=== PATIENT | female | born 1950 | race Caucasian/White ===

== ENCOUNTER → 2020-05-15 15:42 | Outpatient (BNVA) | payer MEDICARE, SELFPAY | PROVIDERS: PCP Internal Medicine; Visit Provider Anesthesiology | DX: M96.1 Postlaminectomy syndrome, not elsewhere classified (principal); G89.4 Chronic pain syndrome | CPT/HCPCS: 99202 ==

== ENCOUNTER 2020-08-16 08:59 | Day surgery (SDC) | payer MEDICARE, SELFPAY ==
[2020-08-12 16:13] VITALS: BMI 32.8
--- NOTE | 2020-08-14 09:59 | HO.ANESPROP2 ---
Documented by User: Geraldine Ballesteros 08/15/20 09:45 HPI - Anesthesia Eval Consult details Narrative: 70yo F for Lumbar Spinal Cord Simulation Trial Eliquis for PAF Case reviewed with Dr Cramer. [facility] Active Problems Active Problems: All Active Problems (Updated 08/13/20 @ 10:14 by Siena Resendiz) Chronic pain syndrome (Acute) Postlaminectomy syndrome, lumbar (Acute) Past Medical History Medical History (HFpEF) heart failure with preserved ejection fraction A-fib Arthritis CAD (coronary artery disease) Chronic kidney disease (CKD), stage IV (severe) Chronic pain syndrome Congestive heart failure (CHF) Diabetic neuropathy Essential tremor GERD (gastroesophageal reflux disease) Hemoglobin F disease History of cardioversion HTN (hypertension) IDDM (insulin dependent diabetes mellitus) Interstitial pulmonary fibrosis Left hip pain Low back pain PONV (postoperative nausea and vomiting) Postlaminectomy syndrome, lumbar RLS (restless legs syndrome) Sleep apnea Spinal stenosis of lumbosacral region Uses walker Venous stasis dermatitis of both lower extremities Surgical History Surgical History H/O cardiac radiofrequency ablation History of back surgery Hx of appendectomy Hx of CABG Hx of cholecystectomy Hx of colonoscopy Social History Social History Smoking Status: Never smoker Use of substances other than those prescribed or required for medical reasons: No Are you DNR?: No Advance Directives: No Advance Directives Information Provided: No Advance Directives on File: No Meds Allergies Allergy/AdvReac Type Severity Reaction Status Date / Time Penicillins Allergy Intermediate Hives Verified 08/16/20 09:06 Home Medications Medication Instructions Recorded Confirmed Last Taken Type apixaban [Eliquis] 1 tab PO BID 08/12/20 08/12/20 Unknown History cholecalciferol (vitamin D3) 25 mcg PO DAILY 08/12/20 08/12/20 Unknown History [Vitamin D3] digoxin 62.5 mcg PO DAILY 08/12/20 08/12/20 Unknown History diltiazem HCl 1 cap PO DAILY 08/12/20 08/12/20 Unknown History empagliflozin [Jardiance] 1 tab PO DAILY 08/12/20 08/12/20 Unknown History gabapentin 300 mg PO DAILY@0730 10/21 05/10/21 Unknown History gabapentin 600 mg PO BEDTIME 08/12/20 08/12/20 Unknown History glipizide 1 tab PO BID 08/12/20 08/12/20 Unknown History insulin aspart U-100 [Novolog unit SUBCUT 08/12/20 Unknown History Flexpen U-100 Insulin] insulin glargine [Basaglar KwikPen 80 unit SUBCUT BEDTIME 08/12/20 08/12/20 Unknown History U-100 Insulin] losartan 1 tab PO BEDTIME 08/12/20 08/12/20 Unknown History metoclopramide HCl [Reglan] 5 mg PO BID 08/12/20 08/12/20 Unknown History metoprolol tartrate 150 mg PO BEDTIME 08/12/20 08/12/20 Unknown History metoprolol tartrate 200 mg PO DAILY@72908/12/20 08/12/20 Unknown History omeprazole 1 cap PO DAILY 08/12/20 08/12/20 Unknown History pramipexole 1 tab PO BEDTIME 08/12/20 08/12/20 Unknown History primidone 50 mg PO DAILY@72908/12/20 08/12/20 Unknown History primidone 100 mg PO BEDTIME 08/12/20 08/12/20 Unknown History simvastatin 1 tab PO BEDTIME 08/12/20 08/12/20 Unknown History torsemide 60 mg PO DAILY@72908/12/20 08/12/20 Unknown History Exam Exam Date and Time: August 14, 2020 0959 Height,Weight and Vital Signs: Height 5 ft 3 in Weight 83.915 kg Pertinent Lab Results Pertinent Lab Results: Per renal note: 06/2020 BUN 44 (H) Creat 1.9 (H) - baseline 1.8-2.0 Na 136 K 4.7 CO2 25 H&H 11.4 (L) & 37.7 Narrative Narrative: EKG 07/2020 afib @ 77 Echo 2019 EF 65% Normal RWMA Enlarged RV, reduced systolic funciton Focal thickening of aortic valve MAC Trace MR Trace TR Trace Pulm Insuff Assessment and Plan Assessment Anesthesia Assessment: Chart Reviewed Documented by User: Jc Downs 08/16/20 09:23 [facility] Past Medical History Medical History (HFpEF) heart failure with preserved ejection fraction A-fib Arthritis CAD (coronary artery disease) Chronic kidney disease (CKD), stage IV (severe) Chronic pain syndrome Congestive heart failure (CHF) Diabetic neuropathy Essential tremor GERD (gastroesophageal reflux disease) Hemoglobin F disease History of cardioversion HTN (hypertension) IDDM (insulin dependent diabetes mellitus) Interstitial pulmonary fibrosis Left hip pain Low back pain PONV (postoperative nausea and vomiting) Postlaminectomy syndrome, lumbar RLS (restless legs syndrome) Sleep apnea Spinal stenosis of lumbosacral region Uses walker Venous stasis dermatitis of both lower extremities Surgical History Surgical History H/O cardiac radiofrequency ablation History of back surgery Hx of appendectomy Hx of CABG Hx of cholecystectomy Hx of colonoscopy Social History Social History Smoking Status: Never smoker Use of substances other than those prescribed or required for medical reasons: No Are you DNR?: No Advance Directives: No Advance Directives Information Provided: No Advance Directives on File: No Meds Allergies Allergy/AdvReac Type Severity Reaction Status Date / Time Penicillins Allergy Intermediate Hives Verified 08/16/20 09:06 Home Medications Medication Instructions Recorded Confirmed Last Taken Type apixaban [Eliquis] 1 tab PO BID 08/12/20 08/12/20 Unknown History cholecalciferol (vitamin D3) 25 mcg PO DAILY 08/12/20 08/12/20 Unknown History [Vitamin D3] digoxin 62.5 mcg PO DAILY 08/12/20 08/12/20 Unknown History diltiazem HCl 1 cap PO DAILY 08/12/20 08/12/20 Unknown History empagliflozin [Jardiance] 1 tab PO DAILY 08/12/20 08/12/20 Unknown History gabapentin 300 mg PO DAILY@0730 08/12/20 08/12/20 Unknown History gabapentin 600 mg PO BEDTIME 08/12/20 08/12/20 Unknown History glipizide 1 tab PO BID 08/12/20 08/12/20 Unknown History insulin aspart U-100 [Novolog unit SUBCUT 08/12/20 Unknown History Flexpen U-100 Insulin] insulin glargine [Basaglar KwikPen 80 unit SUBCUT BEDTIME 08/12/20 08/12/20 Unknown History U-100 Insulin] losartan 1 tab PO BEDTIME 08/12/20 08/12/20 Unknown History metoclopramide HCl [Reglan] 5 mg PO BID 08/12/20 08/12/20 Unknown History metoprolol tartrate 150 mg PO BEDTIME 08/12/20 08/12/20 Unknown History metoprolol tartrate 200 mg PO DAILY@0730 08/12/20 08/12/20 Unknown History omeprazole 1 cap PO DAILY 08/12/20 08/12/20 Unknown History pramipexole 1 tab PO BEDTIME 08/12/20 08/12/20 Unknown History primidone 50 mg PO DAILY@0730 08/12/20 08/12/20 Unknown History primidone 100 mg PO BEDTIME 08/12/20 08/12/20 Unknown History simvastatin 1 tab PO BEDTIME 08/12/20 08/12/20 Unknown History torsemide 60 mg PO DAILY@0730 08/12/20 08/12/20 Unknown History Exam Airway Mallampati Class: III TM Dist: >3cm Neck ROM: Full
--- NOTE | ~2020-08-16 | FL_ITS ---
EXAMINATION: XR FLUOROSCOPY WITH IMAGES CLINICAL INFORMATION: Spinal stimulator trial COMPARISON: None. TECHNIQUE: Fluoroscopy performed by Dr. Dante Hawkins. Fluoroscopy time: 12.4 minutes DAP: 93 mGycm2 Images: 2 FINDINGS: AP and lateral fluoroscopic images of the lower thoracic spine demonstrate a spinal stimulator in the spinal canal. There are median sternotomy wires. There is one broken median sternotomy wires are seen. FL/FL guidance in OR IMPRESSION: Fluoroscopic guidance for spinal stimulator trial.
[2020-08-16 09:20] VITALS: BP 121/56; PULSE 75; RESP 18; TEMP 36.1; O2SAT 97
[2020-08-16 09:25] LABS: Glucose, Whole Blood 117 mg/dL (60-115)
[2020-08-16] MEDS: Lactated Ringers 1,000 ML 50 ML IV (09:31)
--- NOTE | 2020-08-16 09:38 | PC.NURSE ---
cardiology report states unable to assess surgical risk. informed Dr Downs. Dr Downs reviewed ok to proceed at this time.
--- NOTE | 2020-08-16 10:39 | MHC.SHP ---
Pre-Procedural Eval Section A The patient is an INPATIENT: No Changes since office visit: Yes Patient answered all questions The History & Physical has been completed within 30 days and I have reviewed it.: No Section B Chief Complaint: Postlaminectomy Syndrome Details of Present Illness: as above Relevant Family History (Specify if Yes): No Relevant Social History: None Present Medications: see Short Stay Collaborative assessment Medical History: Significant History History of Previous Operations: Relevant previous surgery/procedure and date(s) Allergies: Allergies Allergy/AdvReac Type Severity Reaction Status Date / Time Penicillins Allergy Intermediate Hives Verified 08/16/20 09:06 Review of Systems Sugical H&P ROS: Negative: Constitution, Cardiovascular, Respiratory, Neurological, Psychiatric, Hem-Onc, Allergic/Immunologic, Gastrointestinal, Genitourinary, Musculoskeletal, Integumentary, Endocrine and Eyes/Ears/Nose/Throat Exam Surgical H&P Exam: Normal: HEENT, Normal: Heart, Normal: Lungs, Normal: Extremities, Normal: Abdomen, Normal: Skin and Normal: Neurological Plan Diagnosis/Plan: Unchanged I have reviewed the history and physical and performed a pertinent physical examination on my patient. No changes have occurred unless specified.
[2020-08-16 12:50] VITALS: BP 113/59; PULSE 66; RESP 16; TEMP 36.6; O2SAT 98
--- NOTE | 2020-08-16 12:56 | P.BOP_ITS ---
Brief Operative Note Date of Service: 08/16/20 Pre-op diagnosis: Postlaminectomy syndrome Post-op diagnosis: same Procedure: Trial of spinal cord stimulator [employer] Implants: None permanent Surgeon: Dante Hawkins MD Anesthesia: MAC Was an Metal Hanging Helper used for this Procedure?: No Estimated blood loss (mL): 0 Pathology: none sent Condition: stable
--- NOTE | 2020-08-16 12:57 | P.OP_ITS ---
Operative Note Operative Note Date of Service: 08/16/20 Narrative: Ms. Yaz Arellano is very pleasant 70 years old female who presents in my office with postlaminectomy syndrome. She came today for trial of spinal cord stimulator [employer]. reoperatively patient received 2 g clindamycin 900 mg approximately 30 minutes before the procedure. After obtaining informed consent patient was brought to the operating room, he was positioned prone on operating table, [place] [employer] monitors were applied and patient was deeply sedated. Time-out was performed delineating correct site, side, the nature of the procedure, patient's allergy, preoperative antibiotic. All operating room staff was participating in OR time-out procedure. Patient's entire back was prepped with ChloraPrep twice and draped with full body drape. Sterilely draped C-arm was brought over operating field and square picture of T12, L1, L2 vertebrae as were demonstrated on the screen. . Attention FIRST was concentrated on the RIGHT T12-L1 epidural interspace. The location of the projection of the right pedicle center of the L2 vertebra was found on the skin using C-arm. This location was injected with mixture of lidocaine 2% and Marcaine 0.5% 5 cc in approximate direction of needle advancement.. After that 10 cm 14 gauge introducer epidural needle was inserted through the fascia and advanced toward T12-L1 epidural interspace. The advancement of the needle was performed on anterior posterior and lateral views. Guitar wire and loss of resistance technique were used to locate epidural space. When guitar wire was spread in the epidural fashion, epidural lead was i nserted through the skin and it was advanced in the posterior epidural space to the top of the body of T8 vertebra straight to midline. After that locationf the projection of the LEFT pedicle center of the L2 vertebra was found -using C-arm. This location was injected with mixture of lidocaine 2% and Marcaine 0.5% 5 cc.. . 10 cm 14 gauge curved introducer epidural needle was inserted through the skin and advanced to T12-L1 epidural interspace. The advancement of the needle was performed on anterior posterior and lateral views. Guitar wire and loss of resistance technique were used to locate epidural space. When guitar wire was spread in the epidural fashion, epidural lead was inserted through the needle. However the advancement of 2nd lead was proven to be very difficult. I was not able to advance the lead to the posterior epidural space due to adhesions the L lead was deviating to the anterior epidural space. The decision was made to advance the epidural space at T11-T12 intervertebral interspace. The location of the pedicle of the left L1 vertebra was found using C-arm. The location was injected with mixture of lidocaine 2% and Marcaine 0.5% 5 cc. 10 cm 14 gauge introducer epidural needle was inserted through the skin and advanced to T11-T12 epidural interspace. The advancement of the needle was performed on anterior posterior and lateral views. Guitar wire and loss of resistance technique were used to locate epidural space. When guitar wire was spread in the epidural fashion epidural lead was inserted through the needle. The advancement was now more benign. The lead was advanced to the left of the existing lead a and positioned at the top of T8 vertebra. The position of the lead was left to the existing lead. At this moment patient was awaken.The leads were connected to the testing device and impedance was found appropriate. The stimulation device was used to stimulate spinal cord. Patient reported stimulation corresponding to her pain. After that the epidural needles were removed while care was taken to keep the epidural electrodes in place. Anchoring devices were dislodged on the each of the epidural leads to the level of the skin. They were engaged at the level of the skin. After that they were sutured to the skin using 0 silk sutures 2 sutures per each anchoring device. Bacitracin ointment was applied to the level of the skin. Sterile dressing was applied. At this moment patient was taken to the PACU where she recovered uneventfully.
[2020-08-16 13:05] VITALS: BP 105/51; PULSE 65; RESP 16; TEMP 36.6; O2SAT 97
== END 2020-08-16 14:46 | disposition home or self-care (01) ==
PROVIDERS: PCP Internal Medicine; Visit Provider Anesthesiology
PROC: (CPT 63650; principal; 2020-08-16 10:40)
DX: M96.1 Postlaminectomy syndrome, not elsewhere classified (principal); M54.5 Low back pain; G89.4 Chronic pain syndrome; I12.9 Hypertensive chronic kidney disease with stage 1 through stage 4 chronic kidney disease, or unspecified chronic kidney disease; E11.40 Type 2 diabetes mellitus with diabetic neuropathy, unspecified; E11.22 Type 2 diabetes mellitus with diabetic chronic kidney disease; N18.4 Chronic kidney disease, stage 4 (severe); Z79.4 Long term (current) use of insulin; I50.30 Unspecified diastolic (congestive) heart failure; G25.0 Essential tremor; I48.91 Unspecified atrial fibrillation; J70.3 Chronic drug-induced interstitial lung disorders; T46.2X5A Adverse effect of other antidysrhythmic drugs, initial encounter; Y92.9 Unspecified place or not applicable; Z79.01 Long term (current) use of anticoagulants; Z79.899 Other long term (current) drug therapy
CPT/HCPCS: 63650 ×2; 82947; C1778; C1897; J2250; J3010

== ENCOUNTER → 2020-08-22 11:31 | Outpatient (BNVA) | payer MEDICARE, SELFPAY | PROVIDERS: PCP Internal Medicine; Visit Provider Anesthesiology | DX: M96.1 Postlaminectomy syndrome, not elsewhere classified (principal); G89.4 Chronic pain syndrome | CPT/HCPCS: 99212 ==

== ENCOUNTER 2020-11-05 06:14 | Outpatient (REF) | payer MEDICARE, SELFPAY ==
--- NOTE | ~2020-11-05 | FL_ITS ---
EXAMINATION: XR FLUOROSCOPY WITH IMAGES CLINICAL INFORMATION: Chronic pain syndrome. COMPARISON: None TECHNIQUE: Fluoroscopy performed by Lolita Jasso N.P. Fluoroscopy time: 0.1 minutes DAP: 5.45 Gycm2 Images: 1 FINDINGS: A solitary AP image of the upper lumbar spine was obtained. There is a needle positioned at the L2-L3 disc level and may be intrathecal. There are moderate-sized bilateral lateral bony bars seen at the L4-L5 disc level for lateral fusion. FL/FL guidance in treatment room IMPRESSION: Fluoroscopy was provided to the referring performer during pain management.
== END 2020-11-05 06:15 | disposition home or self-care (01) ==
LOC: HO.RADIR 06:14
PROVIDERS: Visit Provider Anesthesiology
DX: M96.1 Postlaminectomy syndrome, not elsewhere classified (principal); G89.4 Chronic pain syndrome
CPT/HCPCS: 62323; J1170; Q9967

== ENCOUNTER → 2020-11-20 16:08 | Outpatient (BNVA) | payer MEDICARE, SELFPAY | PROVIDERS: PCP Internal Medicine; Visit Provider Anesthesiology | DX: M96.1 Postlaminectomy syndrome, not elsewhere classified (principal); G89.4 Chronic pain syndrome | CPT/HCPCS: Q3014 ==

== ENCOUNTER 2022-10-27 14:23 | Outpatient (AMB) | payer MEDICARE, SELFPAY ==
--- NOTE | 2022-10-27 14:27 | MHC.OFFVIS ---
Intake Vital Signs 10/27/22 14:32 Height 5 ft 3 in Weight 168 lb 8 oz BMI 29.8 BP 152/67 H Blood Pressure Location Rt brachial Position Sitting Pulse 67 Pulse Source Pulse Oximeter Pulse Oximetry (%) 95 Oxygen Delivery Method Room Air Intake Visit Reasons: Diabetic Neuropathy per patient request Intake Note: Pain today 5/10. Telecommunications Cable Jointer Required: No Accompanied by: Self / Same As Patient Allergies Penicillins Allergy (Intermediate, Verified 10/27/22 14:46) Hives clindamycin Allergy (Unknown, Verified 10/27/22 14:46) Gastrointestinal Upset lisinopril Allergy (Unknown, Verified 10/27/22 14:46) Unknown HPI HPI Comments History of Present Illness Details Patient is a pleasant 72 years old female presents today to discuss treatments for chronic painful diabetic neuropathy in both of her feet. She was last seen in our office by Dr. Hawkins in 2020 as noted below. Patient reports chronic burning, tingling, shooting pain in both of her feet and difficulty walking, which is exacerbated by his chronic back pain and RLS too. The pain is rates as 5-7/10 in intensity and worse at night. It interferes with her daily activities and functions and sleeping as well. Patient reports history of back surgeries x3 due to spinal stenosis. She can no longer take gabapentin due to CKD Stage 4. She is followed by Dr. Dael at [facility] for CKD. Also reports being hospitalized for 2 months at [facility] for significant fluid overload and CHF in April-May 2022. She regularly sees concrete paver Dr. Barone. She is on Eliquis for Afib, followed by Dr. Chan and has pending surgery for Watchman insertion by Dr. Barnes at [facility] on 12/02/22. Patient has significant venous stasis of both lower extremities and is interested in Vascular consultation. Denies any fever, weight changes, bladder or bowel incontinence or saddle anesthesia. Ambulates with slow, antalgic gait with assistance of walker with seat. PRIOR Dr. Hawkins 11/20/2020: Siobhan is on the phone today after trial of intrathecal drug delivery system pain pump. She reported nausea and vomiting after 50 micro g of Dilaudid intrathecal. She reported no pain relief. She reported continuous pain after the injection inability to stand for long period of time after the injection, she reports that she is being upset with results of those procedures. Before that she went for the trial of spinal cord stimulator [employer]. She reported less than 10% pain improvement. She reported multiple stimulations applied to her lower thoracic spine including low frequency stimulation, high-frequency stimulation, alpha technology, very well stimulation, continuous stimulation all resulted in no pain improvement. Prior: her problem started in 2011. 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 . She was addressing this issue with orthopedic surgeon. She received 2 surgeries on her back 1 is 2011 and another redo in 2017. She states that there is no hardware in her back. She reports her pain 8 out of 10 to 6/10. her pain onset was gradual she denies constant radiation but reports radiation from time to time in bilateral lower extremities She received multiple sessions of physical therapy in 2011 in 2012, physical therapy made her pain only worse. She reported that physical therapy if would be offered to her she would adamantly refused to go for physical therapy so bad experience she had with physical therapy in the past. She had acupuncture for her pain control but acupuncture was not effective. [facility] Medical History (Updated 10/27/22 @ 15:53 by KAILEE Schmid) (HFpEF) heart failure with preserved ejection fraction A-fib Arthritis CAD (coronary artery disease) Chronic kidney disease (CKD), stage IV (severe) Chronic pain syndrome Congestive heart failure (CHF) Diabetic neuropathy Essential tremor GERD (gastroesophageal reflux disease) Hemoglobin F disease History of cardioversion HTN (hypertension) IDDM (insulin dependent diabetes mellitus) Interstitial pulmonary fibrosis Left hip pain Low back pain PONV (postoperative nausea and vomiting) Postlaminectomy syndrome, lumbar RLS (restless legs syndrome) Sleep apnea Spinal stenosis of lumbosacral region Tremor Urticaria Uses walker Venous stasis dermatitis of both lower extremities Surgical History H/O cardiac radiofrequency ablation History of back surgery Hx of appendectomy Hx of CABG Hx of cholecystectomy Hx of colonoscopy Social History (Updated 10/27/22 @ 14:47 by Ruthy Pena) Alcohol intake: current Alcohol intake frequency: a few times a week Patient Tobacco Use Status: Never used Tobacco Review of Systems Const All systems reviewed & are unremarkable except as noted in HPI and below Physical Exam Vital Signs: Last Vital Signs Pulse 67 10/27/22 14:32 BP 152/67 H 10/27/22 14:32 Pulse Ox 95 10/27/22 14:32 Oxygen Delivery Method Room Air 10/27/22 14:32 General: Appears afebrile. Alert and oriented. Mood and affect appropriate. Follows and participates in conversation appropriately. Respiratory effort is unlabored. No cough. Able to transition from sit to stand with assistance. Uses walker with ambulation. Back/Spine/Pelvis Other: Lumbar flexion and extension reproduces low back pain. Cervical Spine: No Cervical spine tenderness Thoracic/Lumbar Spine: thoracic and lumbar spine normal to inspection, Thoracic/lumbar spine scar(s), straight leg raise negative bilaterally, pain with thoraco-lumbar ROM, paraspinal muscle tenderness, thoraco-lumbar ROM limited, No thoracic spinal tenderness and lumbar spinal tenderness Extrem Other: There is a decreased sensation over the soles of the feet and toes. No breaks in the skin, no ulcers. No soft tissue swelling or warmth. Nonpitting ankle and pedal edema with BLE skin discolorations bilaterally. General: Yes no calf tenderness, No cyanosis, Yes pedal edema and Yes venous stasis dermatitis (bilateral lower extremities) Assessment & Plan Assessment & Plan (1) Chronic pain syndrome: Code(s): G89.4 - Chronic pain syndrome (2) Venous stasis dermatitis of both lower extremities: Code(s): I87.2 - Venous insufficiency (chronic) (peripheral) (3) Postlaminectomy syndrome, lumbar: Code(s): M96.1 - Postlaminectomy syndrome, not elsewhere classified (4) Chronic painful diabetic neuropathy: Code(s): E11.40 - Type 2 diabetes mellitus with diabetic neuropathy, unspecified Plan 1. Will try to arrange topical 8% capsaicin application to her bilateral foot pain related to diabetic neuropathy as next step once we have confirmed availability. Informational booklet provided. Patient also suffers from post laminectomy syndrome and has previously failed ITDD and SCS trials. 2. Vascular Surgery Referral for significant venous insufficiency and venous stasis at [facility], per patient's request. She has upcoming procedure for Watchman device insertion for Afib on 12/02/22 at [facility]. All questions and concerns have been answered and patient agreed with the plan. Follow up as needed. Orders: Referrals Vascular Surgery Referral G89.4 - Chronic pain syndrome, I87.2 - Venous insufficiency (chronic) (peripheral) Coding Level of Care Code Est Pt Level 4 (35608) Diagnoses Chronic pain syndrome G89.4 Venous stasis dermatitis of both lower extremities I87.2 Postlaminectomy syndrome, lumbar M96.1 Chronic painful diabetic neuropathy E11.40
[2022-10-27 14:32] VITALS: BP 152/67; PULSE 67; O2SAT 95; BMI 29.8
== END 2022-10-27 14:56 | disposition home or self-care (01) ==
PROVIDERS: PCP Internal Medicine; Visit Provider Nurse Practitioner Family
DX: G89.4 Chronic pain syndrome (principal); I87.2 Venous insufficiency (chronic) (peripheral); M96.1 Postlaminectomy syndrome, not elsewhere classified; E11.40 Type 2 diabetes mellitus with diabetic neuropathy, unspecified
CPT/HCPCS: 99214

== ENCOUNTER → 2022-10-27 14:23 | Outpatient (BNVA) | payer MEDICARE, SELFPAY | PROVIDERS: PCP Internal Medicine; Visit Provider Nurse Practitioner Family | DX: G89.4 Chronic pain syndrome (principal); E11.40 Type 2 diabetes mellitus with diabetic neuropathy, unspecified; E11.22 Type 2 diabetes mellitus with diabetic chronic kidney disease; I13.0 Hypertensive heart and chronic kidney disease with heart failure and stage 1 through stage 4 chronic kidney disease, or unspecified chronic kidney disease; N18.4 Chronic kidney disease, stage 4 (severe); I11.0 Hypertensive heart disease with heart failure; I50.32 Chronic diastolic (congestive) heart failure; I87.2 Venous insufficiency (chronic) (peripheral); M96.1 Postlaminectomy syndrome, not elsewhere classified | CPT/HCPCS: 99212 ==